=== PATIENT | female | born 1960 | race Caucasian/White ===

== ENCOUNTER 2023-12-11 15:30 | Oncology outpatient (recurring) (ONCR) | payer BC, SELFPAY ==
[2023-12-01 13:04] LABS: Hematocrit 28.7 % (36-47); Mean Corpuscular HGB Conc 29.6 g/dL (30-55); Mean Corpuscular Hemoglobin 23.9 pg (27-33); Mean Corpuscular Volume 80.6 fl (85-98); Mean Platelet Volume 10.2 fL (7.4-10.4); Platelet Count 109 10^3/cmm (157-399); Red Blood Count 3.56 10^6/uL (3.85-5.65); Red Cell Distribution Width 17.2 % (12.1-15.1); White Blood Count 4.52 10^3/uL (3.29-11.43)
[2023-12-01 13:28] LABS: Slide Review Slide Review Perform; Total Cells Counted 100 (0-100)
[2023-12-01 13:29] LABS: Absolute Neutrophil 1.2 10^3/cmm (1.4-6.5); Absolute Segmented Neutrophil 1.2 10/cmm (1.6-7.1); Anisocytosis 1+; Eosinophils 0 %; Lymphocytes 50 %; Lymphocytes Absolute 3.3 10^3/cmm (1.2-3.4); Platelet Estimate Decreased (Normal); Segmented Neutrophils 27 %
[2023-12-01 13:40] LABS: Alanine Aminotransferase < 5 U/L (0-33); Albumin Level 3.9 g/dL (3.5-5.2); Alkaline Phosphatase 124 U/L (35-105); Anion Gap 13.7 (5-19); Aspartate Amino Transferase 9 U/L (0-32); Blood Urea Nitrogen 13 mg/dL (8-23); Calcium 8.5 mg/dL (8.5-10.5); Carbon Dioxide 28 mmol/L (22-29); Chloride 106 mmol/L (98-107); Creatinine Clr Calc Pharmacy 72.5367; Ferritin 93 ng/mL (15-150); Globulin 2.2 g/dL (1.3-4.6); Glomerular Filtration Rate 63.4 mL/min (90-130); Glucose 110 mg/dL (65-115); Iron 16 ug/dL (37-145); Lactate Dehydrogenase 154 U/L (135-214); Osmolality Calculated 299 mOsm/kg (285-295); Percent Saturation 9.8 % (20-50); Potassium 3.7 mmol/L (3.5-5.1); Sodium 144 mmol/L (136-145); Total Bilirubin 0.4 mg/dL (0.15-1.2); Total Iron Binding Capacity 163 mcg/dl; Total Protein 6.1 g/dL (6.6-8.7); Unsaturated Iron Binding 147 ug/dL (112-347)
[2023-12-01 13:47] LABS: Folate Level 3.6 ng/mL (4.8-37.3)
[2023-12-01 14:28] LABS: Vitamin B12 > 2000 pg/mL (232-1245)
[2023-12-02 09:45] LABS: PROTEIN, TOTAL 5.9 g/dL (6.1-8.1)
[2023-12-02 16:09] LABS: ALBUMIN 3.8 g/dL (3.8-4.8); ALPHA 1 GLOBULIN 0.3 g/dL (0.2-0.3); ALPHA 2 GLOBULIN 0.6 g/dL (0.5-0.9); BETA 1 GLOBULIN 0.4 g/dL (0.4-0.6); BETA 2 GLOBULIN 0.2 g/dL (0.2-0.5); GAMMA GLOBULIN 0.6 g/dL (0.8-1.7)
--- NOTE | 2023-12-11 14:59 | MM_ITS ---
WS: [id number] BILATERAL 3D TOMOSYNTHESIS DIGITAL SCREENING MAMMOGRAPHY WITH CAD CLINICAL INFORMATION: POST MENIS HISTORY: Screening mammogram. No current complaints. COMPARISON: 2017 TECHNIQUE: Bilateral CC and MLO views. FINDINGS: Scattered fibroglandular densities bilaterally. No suspicious focal mass, asymmetry, calcifications, or architectural distortion. No evidence of malignancy. A few tiny incidental punctate calcifications . MM/[place] [id number] IMPRESSION: BI-RADS: 2-Benign FOLLOW UP: 1 Year Follow-up Recommend return to annual screening mammography.
== END 2023-12-25 23:59 | disposition home or self-care (01) ==
LOC: ONCMED 12-23 18:50
PROVIDERS: Internal Medicine Hematology & Oncology; Family Provider Family Medicine; PCP Family Medicine; Visit Provider Internal Medicine Medical Oncology
DX: Z12.31 Encounter for screening mammogram for malignant neoplasm of breast (principal); Z53.9 Procedure and treatment not carried out, unspecified reason
CPT/HCPCS: 36415; 77063; 77067; 80053; 82607; 82728; 82746; 83540; 83550; 83615; 83883; 84155; 84165; 85007; 85025

== ENCOUNTER 2023-12-29 11:51 | Outpatient (CLI) | payer BC, SELFPAY ==
--- NOTE | 2023-12-29 12:00 | PETR_ITS ---
PROCEDURE INFORMATION: Exam: PET/CT Skull Base to Mid-thigh Exam date and time: 12/29/2023 12:13 PM Age: 63 years old Clinical indication: Symptoms: Splenomegley with odd lymph nodes LABS AND CLINICAL REPORTS: Glucose: 97 mg/dl Treatment strategy for malignancy (PET staging): Initial Staging (PI) TECHNIQUE: Imaging protocol: Following at least four-hour fasting and following the injection of radiopharmaceutical, low dose CT images were obtained. Then, PET images were obtained. Attenuation corrected images were constructed using the CT scan. Fused images of PET and CT were reviewed. The standardized uptake values (SUV) reported below are maximum values within a region of interest, expressed in gm/ml. Exam includes orbital meatal line to mid-thigh. Radiopharmaceutical: 13.2 mCi F-18 FDG (Fluorodeoxyglucose), IV. Time of imaging post radiopharmaceutical administration: 1 hour Injection site: Left antecubital COMPARISON: No relevant prior studies available. FINDINGS: Brain: Visualized brain has normal physiologic uptake. Paranasal sinuses: There is mild uptake within moderate mucosal thickening of the sphenoid sinus, SUV max 2.6, likely related to mild inflammatory changes associated with chronic sinusitis. Pharynx: No abnormal uptake. Larynx: No abnormal uptake. Lungs, pleura and trachea: No abnormal uptake. Minimal bullous changes at the right lung apex are present. Heart: Normal physiologic uptake. Mediastinal space: No abnormal uptake. Liver: No abnormal uptake. Small calcified granulomas in the liver are present. Gallbladder and bile ducts: No abnormal uptake. Cholecystectomy clips are present. Pancreas: No abnormal uptake. Spleen: There is marked splenomegaly, measuring 26 cm superior to inferior. Abnormal uptake within the spleen is diffuse SUV max 6.0, SUV mean 3.6. Clustered non radiotracer avid soft tissue density nodules medial to the spleen are noted measuring up to 1.3 cm on series 3, image 132. Adrenal glands: No abnormal uptake. Kidneys and ureters: Normal physiologic uptake. Stomach and bowel: No abnormal uptake. Vasculature: No abnormal uptake. Mild splenic venous varicosities are noted. There are diffuse atherosclerotic calcifications. Lymph nodes: No abnormal uptake. No lymphadenopathy in the head, neck, chest, abdomen, pelvis, and extremities. Small benign-appearing calcified mediastinal and left hilar lymph nodes are present. Skeleton: Elevated uptake in the medial mid to superior scapular body is noted where there is a region of linear lucency with adjacent cortical indistinctness on CT series 3 images 53 through 56, SUV max 3.3. Degenerative changes in the spine are present. Soft tissues: No abnormal uptake in the visualized head, neck, chest, abdomen, pelvis, and extremities. METRICS: Mediastinal blood pool: SUV max 1.5 Liver uptake: SUV max 2.7 [id number] IMPRESSION: 1. Marked splenomegaly with diffusely abnormally elevated uptake is noted. This appearance can be associated with malignancy such as lymphoma. Infectious or inflammatory etiologies are an additional consideration. 2. No evidence of lymphadenopathy or abnormal uptake within lymph nodes. 3. A focus of abnormal uptake within a region of abnormal lucency in mid to superomedial scapular body is present. A malignant etiology cannot be excluded. Uptake related to recent trauma could also account for this appearance. Correlation with clinical history is recommended. MRI of the scapula with and without contrast may be useful for more definitive assessment. 4. Additional nonurgent findings as detailed above.
== END 2023-12-29 11:52 | disposition home or self-care (01) ==
LOC: RAD 11:51
PROVIDERS: Family Provider Family Medicine; PCP Family Medicine; Visit Provider Internal Medicine Hematology & Oncology
DX: R16.1 Splenomegaly, not elsewhere classified (principal)
CPT/HCPCS: 78815; A9552

== ENCOUNTER 2024-01-07 09:52 | Oncology outpatient (recurring) (ONCR) | payer BC, SELFPAY ==
[2024-01-07 10:53] LABS: Erythrocyte Sedimentation Rate 11 mm/hr (0-15)
[2024-01-07 10:55] LABS: Alanine Aminotransferase 7 U/L (0-33); Albumin Level 4.2 g/dL (3.5-5.2); Alkaline Phosphatase 138 U/L (35-105); Anion Gap 15.9 (5-19); Aspartate Amino Transferase 13 U/L (0-32); Blood Urea Nitrogen 13 mg/dL (8-23); C Reactive Protein 12.1 mg/L (0.0-4.9); Calcium 9.5 mg/dL (8.5-10.5); Carbon Dioxide 26 mmol/L (22-29); Chloride 102 mmol/L (98-107); Globulin 2.4 g/dL (1.3-4.6); Glomerular Filtration Rate 63.4 mL/min (90-130); Glucose 100 mg/dL (65-115); Hematocrit 33.3 % (36-47); Lactate Dehydrogenase 172 U/L (135-214); Mean Corpuscular HGB Conc 29.7 g/dL (30-55); Mean Corpuscular Volume 80.6 fl (85-98); Mean Platelet Volume 10.3 fL (7.4-10.4); Osmolality Calculated 290 mOsm/kg (285-295); Platelet Count 100 10^3/cmm (157-399); Potassium 3.9 mmol/L (3.5-5.1); Red Blood Count 4.13 10^6/uL (3.85-5.65); Red Cell Distribution Width 17.2 % (12.1-15.1); Sodium 140 mmol/L (136-145); Total Bilirubin 0.5 mg/dL (0.15-1.2); Total Protein 6.6 g/dL (6.6-8.7); White Blood Count 4.26 10^3/uL (3.29-11.43)
[2024-01-07 11:29] LABS: Slide Review Slide Review Perform
[2024-01-07 11:30] LABS: Absolute Eosinophils 0.1 10^3/cmm (0.0-0.7); Absolute Neutrophil 1.4 10^3/cmm (1.4-6.5); Absolute Segmented Neutrophil 1.4 10/cmm (1.6-7.1); Eosinophils 3 %; LAB Peripheral Smear Sent for Review; Lymphocytes 38 %; Lymphocytes Absolute 2.7 10^3/cmm (1.2-3.4); Platelet Estimate Decreased (Normal); Segmented Neutrophils 32 %; Total Cells Counted 100 (0-100)
[2024-01-08 05:09] LABS: Folate Level 2.4 ng/mL (4.8-37.3)
[2024-01-08 13:52] LABS: Leukemia Profile (BBPL) See Report
== END 2024-01-24 23:59 | disposition home or self-care (01) ==
LOC: ONCMED 09:53
PROVIDERS: Family Provider Family Medicine; PCP Family Medicine; Visit Provider Internal Medicine Medical Oncology
DX: Z12.31 Encounter for screening mammogram for malignant neoplasm of breast (principal); Z53.9 Procedure and treatment not carried out, unspecified reason; D64.9 Anemia, unspecified; R16.1 Splenomegaly, not elsewhere classified
CPT/HCPCS: 36415; 80053; 82746; 83615; 85007; 85025; 85651; 86140; 88184; 88185

== ENCOUNTER 2024-02-15 13:06 | Oncology outpatient (recurring) (ONCR) | payer BC, SELFPAY | END 2024-02-24 23:59 | disposition home or self-care (01) | PROVIDERS: Family Provider Family Medicine; PCP Family Medicine; Visit Provider Internal Medicine Medical Oncology | DX: Z53.9 Procedure and treatment not carried out, unspecified reason (principal) ==

== ENCOUNTER 2024-03-24 07:20 | Oncology outpatient (recurring) (ONCR) | payer BC, SELFPAY ==
[2024-03-24] VITALS (15 sets, daily range): BP systolic 100–121; BP diastolic 50–72; PULSE 71–103; RESP 15–20; TEMP 36–37.7; O2SAT 92–99
[2024-03-24 07:48] LABS: Basophils % 0.3 %; Eosinophils % 0.3 %; Nucleated Red Blood Cells % 0 %
[2024-03-24 07:53] LABS: Hematocrit 31.1 % (36-47); Lymphocytes # 4.5 10^3/uL (0.8-4.8); Lymphocytes % 68.3 %; Mean Corpuscular HGB Conc 29.9 g/dL (30-55); Mean Corpuscular Hemoglobin 24.3 pg (27-33); Mean Corpuscular Volume 81.2 fl (85-98); Mean Platelet Volume 10.3 fL (7.4-10.4); Monocytes # 0.5 10^3/uL (0.2-0.9); Monocytes % 6.8 %; Neutrophils # 1.59 10^3/uL (1.8-7.7); Neutrophils % 24.1 %; Platelet Count 88 10^3/cmm (157-399); Red Blood Count 3.83 10^6/uL (3.85-5.65); Red Cell Distribution Width 16.9 % (12.1-15.1); White Blood Count 6.59 10^3/uL (3.29-11.43)
[2024-03-24 08:06] LABS: Alanine Aminotransferase 6 U/L (0-33); Albumin Level 4.1 g/dL (3.5-5.2); Alkaline Phosphatase 123 U/L (35-105); Anion Gap 19.3 (5-19); Aspartate Amino Transferase 12 U/L (0-32); Blood Urea Nitrogen 13 mg/dL (8-23); Calcium 8.9 mg/dL (8.5-10.5); Carbon Dioxide 23 mmol/L (22-29); Chloride 102 mmol/L (98-107); Globulin 2.1 g/dL (1.3-4.6); Glucose 147 mg/dL (65-115); Osmolality Calculated 295 mOsm/kg (285-295); Potassium 3.3 mmol/L (3.5-5.1); Sodium 141 mmol/L (136-145); Total Bilirubin 0.7 mg/dL (0.15-1.2); Total Protein 6.2 g/dL (6.6-8.7)
[2024-03-24 08:07] LABS: Slide Review Slide Review Perform
[2024-03-24] MEDS: acetaminophen 325 mg Tablet 650 MG PO ×2 (09:46→13:58)
[2024-03-24] MEDS: diphenhydrAMINE 50 mg/mL SDV 1mL 25 MG IVP (09:46)
[2024-03-24] MEDS: sodium chloride 0.9% 250 ML 75 ML IV (09:46)
[2024-03-24] MEDS: allopurinol 300 mg Tablet PO (10:04)
[2024-03-24] MEDS: rituximab-abbs 500 MG, rituximab-abbs 240 MG in sodium chloride 0.9% 500 ML 54.1 MG IV (10:20)
--- NOTE | 2024-03-24 10:33 | PC.NURSE ---
patient reports some changes in breathing, still feeling as if she can get a full breath but different. Slight dry cough noted and was no present prior to infusion. Lung sounds are still clear. Vitals noted. Infusion has been paused and provider informed and requested at chairside.
[2024-03-24 10:36] LABS: Hepatitis A Antibody IgM Non-Reactive (Nonreactive); Hepatitis B Core AB, Total Non-Reactive (Nonreactive); Hepatitis B Surface AB < 3.5 (11.5-1000); Hepatitis B Surface Antigen Non-Reactive (Nonreactive); Hepatitis C Virus Antibody Non-Reactive (Nonreactive)
[2024-03-24] MEDS: meperidine 50 mg/mL INJ 12.5 MG IVP ×2 (11:33→12:39)
[2024-03-24] MEDS: methylPREDNISolone sod succ 40 mg/mL INJ IVP (12:29)
[2024-03-24] MEDS: sodium chloride 0.9% 1,000 ML 250 ML IV (12:45)
[2024-03-24] MEDS: ondansetron 2 mg/ML SDV 2 mL 8 MG IVP (12:57)
--- NOTE | 2024-03-25 08:40 | PC.NURSE ---
Called pt for follow up. Pt states she is feeling wonderful. Her pain in the abdomen is gone. Pt is currently at work. No fever. JW
== END 2024-03-26 23:59 | disposition home or self-care (01) ==
PROVIDERS: Nurse Practitioner Family; Family Provider Family Medicine; PCP Family Medicine; Visit Provider Internal Medicine Medical Oncology
DX: Z53.9 Procedure and treatment not carried out, unspecified reason (principal); D50.9 Iron deficiency anemia, unspecified; C83.07 Small cell B-cell lymphoma, spleen; Z79.899 Other long term (current) drug therapy
CPT/HCPCS: 80053; 85025; 86705; 86706; 86709; 86803; 87340; 96361; 96375; 96376; 96413; J1200; J2175; J2405; J2919; J7030; J7040; J7050; Q5115

== ENCOUNTER 2024-04-19 14:30 | Outpatient (CLI) | payer BC, SELFPAY ==
--- NOTE | 2024-04-19 14:30 | CT_ITS ---
WS: [id number] CT ABDOMEN AND PELVIS WITH CONTRAST HISTORY: followup splenic lymphoma post treatment TECHNIQUE: Imaging performed of the abdomen and pelvis with IV contrast. Single phase imaging of the abdomen. Coronal and sagittal reformats are submitted. All CT scans at [facility] use at [address] one of these dose optimization techniques: automated exposure control; mA and/or kV adjustment per patient size (includes targeted exams where dose is matched to clinical indication); or iterative re construction. IV CONTRAST: Omnipaque 350; 100 mL IV. Oral contrast: Yes. DLP: 796.40 mGy.cm COMPARISON: PET/CT 12/29/2023 Lower thorax: Lung bases are clear. Heart is normal size. Small hiatal hernia. Oral contrast still pr esent within the distal esophagus may be from reflux disease. Liver/biliary system: Liver is mildly enlarged. No mass. No bile duct dilatation. Gallbladder: Status post cholecystectomy. Pancreas: Normal size pancreas and pancreatic duct. No adjacent inflammation. Spleen: Spleen is enlarged extending over a length of 18.1 cm. This compares to 26 cm on the PET/CT. No low-attenuation masses within the spleen. Adrenal glands: Normal. Right kidney: Normal. Left kidney: Normal. Aorta: Mild atherosclerosis with no aneurysm. Lymphadenopathy: There are a few small well-circumscribed masses adjacent to the splenic hilum which are probably splenule's. No central mesenteric or retroperitoneal adenopathy. Free fluid: None. GI tract: Stomach is markedly distended with fluid fluid and air. No outlet obstruction is identified . No small bowel obstruction. Moderate diffuse fecal retention. No colitis or obstruction. Abdominal wall: Fat containing umbilical hernia. Pelvis: No free fluid or adenopathy. Atrophic uterus. There is a tiny amount of air in the urinary bl adder of uncertain significance. No fistula is identified. No history of recent catheterization. Vaughn elate for urinary tract infection. Bones: 0 degenerative changes in the lumbar spine with mild rotary scoliosis. CT/CT abdomen pelvis w con* [id number] IMPRESSION: 1. Continued splenomegaly. Spleen is significantly decreased in size since 12/28. Spleen has decreased from 26 cm in length to 18.1 cm. No splenic lesions . 2. No ascites or adenopathy. 3. Prior cholecystectomy.
[2024-04-19] MEDS: iohexol 350 mg/mL 500 mL Btl (per mL) IV (15:32)
[2024-04-19] MEDS: iohexol 350 mg/mL 500 mL Btl (per mL) PO (15:32)
== END 2024-04-19 14:31 | disposition home or self-care (01) ==
PROVIDERS: Family Provider Family Medicine; PCP Family Medicine; Visit Provider Nurse Practitioner
DX: C83.07 Small cell B-cell lymphoma, spleen (principal); R16.1 Splenomegaly, not elsewhere classified; K59.00 Constipation, unspecified; K42.9 Umbilical hernia without obstruction or gangrene; Z90.49 Acquired absence of other specified parts of digestive tract
CPT/HCPCS: 74177

== ENCOUNTER 2024-04-21 10:15 | Oncology outpatient (recurring) (ONCR) | payer BC, SELFPAY ==
[2024-03-31] VITALS (11 sets, daily range): BP systolic 108–137; BP diastolic 51–79; PULSE 72–98; RESP 16; TEMP 35.7–37.6; O2SAT 95–99
[2024-03-31 09:15] LABS: Basophils % 0.3 %; Eosinophils % 0.3 %; Hematocrit 32.3 % (36-47); Lymphocytes # 4.3 10^3/uL (0.8-4.8); Lymphocytes % 66.2 %; Mean Corpuscular Hemoglobin 24.6 pg (27-33); Mean Corpuscular Volume 81.8 fl (85-98); Mean Platelet Volume 10.3 fL (7.4-10.4); Monocytes # 0.3 10^3/uL (0.2-0.9); Monocytes % 4.6 %; Neutrophils # 1.84 10^3/uL (1.8-7.7); Neutrophils % 28.4 %; Nucleated Red Blood Cells % 0 %; Platelet Count 99 10^3/cmm (157-399); Red Blood Count 3.95 10^6/uL (3.85-5.65); Red Cell Distribution Width 17.3 % (12.1-15.1); White Blood Count 6.47 10^3/uL (3.29-11.43)
[2024-03-31 09:32] LABS: Alanine Aminotransferase 9 U/L (0-33); Albumin Level 4.5 g/dL (3.5-5.2); Alkaline Phosphatase 136 U/L (35-105); Anion Gap 14.8 (5-19); Aspartate Amino Transferase 11 U/L (0-32); Blood Urea Nitrogen 14 mg/dL (8-23); Calcium 9.6 mg/dL (8.5-10.5); Carbon Dioxide 28 mmol/L (22-29); Chloride 104 mmol/L (98-107); Creatinine Clr Calc Pharmacy 69.3229; Globulin 2.2 g/dL (1.3-4.6); Glomerular Filtration Rate 63.2 mL/min (90-130); Glucose 94 mg/dL (65-115); Osmolality Calculated 296 mOsm/kg (285-295); Potassium 3.8 mmol/L (3.5-5.1); Sodium 143 mmol/L (136-145); Total Bilirubin 0.5 mg/dL (0.15-1.2); Total Protein 6.7 g/dL (6.6-8.7)
[2024-03-31 09:45] LABS: Slide Review Slide Review Perform
[2024-03-31] MEDS: acetaminophen 325 mg Tablet 650 MG PO (11:06)
[2024-03-31] MEDS: sodium chloride 0.9% 250 ML 75 ML IV (11:07)
[2024-03-31] MEDS: methylPREDNISolone sod succ 125 mg/2 mL INJ 60 MG IVP (11:11)
[2024-03-31] MEDS: diphenhydrAMINE 50 mg/mL SDV 1mL 25 MG IVP ×2 (11:19→14:30)
[2024-03-31] MEDS: rituximab-abbs 500 MG, rituximab-abbs 240 MG in sodium chloride 0.9% 500 ML 19.4 MG IV (11:47)
[2024-03-31] MEDS: meperidine 50 mg/mL INJ 25 MG IVP (14:10)
[2024-03-31] MEDS: sodium chloride 0.9% 1,000 ML 75 ML IV (14:30)
[2024-04-07] VITALS (16 sets, daily range): BP systolic 100–137; BP diastolic 55–75; PULSE 64–94; RESP 16; TEMP 36.2–37.2; O2SAT 94–99
[2024-04-07 07:48] LABS: Basophils % 0.7 %; Eosinophils % 0.6 %; Hematocrit 32.6 % (36-47); Lymphocytes # 2.9 10^3/uL (0.8-4.8); Lymphocytes % 54.3 %; Mean Corpuscular HGB Conc 29.8 g/dL (30-55); Mean Corpuscular Hemoglobin 24.7 pg (27-33); Mean Platelet Volume 10.1 fL (7.4-10.4); Monocytes # 0.3 10^3/uL (0.2-0.9); Monocytes % 5.4 %; Neutrophils # 2.08 10^3/uL (1.8-7.7); Neutrophils % 38.6 %; Nucleated Red Blood Cells % 0 %; Platelet Count 84 10^3/cmm (157-399); Red Blood Count 3.93 10^6/uL (3.85-5.65); Red Cell Distribution Width 17.4 % (12.1-15.1); White Blood Count 5.38 10^3/uL (3.29-11.43)
[2024-04-07 08:11] LABS: Alanine Aminotransferase 7 U/L (0-33); Albumin Level 4.1 g/dL (3.5-5.2); Alkaline Phosphatase 121 U/L (35-105); Anion Gap 13.9 (5-19); Aspartate Amino Transferase 9 U/L (0-32); Blood Urea Nitrogen 10 mg/dL (8-23); Calcium 9.1 mg/dL (8.5-10.5); Carbon Dioxide 28 mmol/L (22-29); Chloride 104 mmol/L (98-107); Creatinine Clr Calc Pharmacy 69.3229; Globulin 2.1 g/dL (1.3-4.6); Glomerular Filtration Rate 63.2 mL/min (90-130); Glucose 144 mg/dL (65-115); Osmolality Calculated 296 mOsm/kg (285-295); Potassium 3.9 mmol/L (3.5-5.1); Sodium 142 mmol/L (136-145); Total Bilirubin 0.7 mg/dL (0.15-1.2); Total Protein 6.2 g/dL (6.6-8.7)
[2024-04-07 08:46] LABS: Slide Review Slide Review Perform
[2024-04-07] MEDS: sodium chloride 0.9% 250 ML 75 ML IV (09:08)
[2024-04-07] MEDS: acetaminophen 325 mg Tablet 650 MG PO (09:11)
[2024-04-07] MEDS: methylPREDNISolone sod succ 125 mg/2 mL INJ 60 MG IVP (09:11)
[2024-04-07] MEDS: diphenhydrAMINE 50 mg/mL SDV 1mL 25 MG IVP ×2 (09:13→12:52)
[2024-04-07] MEDS: rituximab-abbs 500 MG, rituximab-abbs 240 MG in sodium chloride 0.9% 500 ML 40 MG IV (10:26)
[2024-04-07] MEDS: methylPREDNISolone sod succ 40 mg/mL INJ IVP (12:59)
[2024-04-07] MEDS: sodium chloride 0.9% 1,000 ML 250 ML IV (13:07)
--- NOTE | 2024-04-07 15:55 | PC.NURSE ---
Pt receiving infusion of Rituximab. At 1249, pt states her tongue and lips were tingling along with head and neck pain. Notified CHRISTOPH España., verbal order for 25mg benadryl and 40mg solu-medrol. Benadryl given at 1252, vitals stable. Solu-medrol given at 1259. Pt continues to maintain stable vitals. (all vitals charted in worklist). Pt lungs clear. 1307 pt states tingling gone from lips and tongue, slight headache continues and neck pain improving. Rituximab restarted at 1338, pt was able to finish infusion with no further reactions. Pt tolerated well.
[2024-04-14] VITALS (7 sets, daily range): BP systolic 95–117; BP diastolic 57–71; PULSE 69–77; RESP 16; TEMP 36.1–36.7; O2SAT 94–99
[2024-04-14 07:58] LABS: Basophils % 1.6 %; Eosinophils % 0.8 %; Lymphocytes # 0.8 10^3/uL (0.8-4.8); Lymphocytes % 29.6 %; Mean Corpuscular HGB Conc 29.7 g/dL (30-55); Mean Corpuscular Hemoglobin 24.4 pg (27-33); Mean Corpuscular Volume 82.2 fl (85-98); Monocytes # 0.1 10^3/uL (0.2-0.9); Monocytes % 4.7 %; Neutrophils # 1.62 10^3/uL (1.8-7.7); Neutrophils % 62.9 %; Nucleated Red Blood Cells % 0 %; Platelet Count 125 10^3/cmm (157-399); Red Blood Count 4.38 10^6/uL (3.85-5.65); Red Cell Distribution Width 17.6 % (12.1-15.1); White Blood Count 2.57 10^3/uL (3.29-11.43)
[2024-04-14 08:30] LABS: Alanine Aminotransferase 9 U/L (0-33); Albumin Level 4.4 g/dL (3.5-5.2); Alkaline Phosphatase 103 U/L (35-105); Anion Gap 15.2 (5-19); Aspartate Amino Transferase 10 U/L (0-32); Blood Urea Nitrogen 14 mg/dL (8-23); Calcium 9.2 mg/dL (8.5-10.5); Carbon Dioxide 28 mmol/L (22-29); Chloride 103 mmol/L (98-107); Creatinine Clr Calc Pharmacy 69.5063; Globulin 1.8 g/dL (1.3-4.6); Glomerular Filtration Rate 63.2 mL/min (90-130); Glucose 109 mg/dL (65-115); Osmolality Calculated 295 mOsm/kg (285-295); Potassium 4.2 mmol/L (3.5-5.1); Sodium 142 mmol/L (136-145); Total Bilirubin 0.6 mg/dL (0.15-1.2); Total Protein 6.2 g/dL (6.6-8.7)
[2024-04-14] MEDS: sodium chloride 0.9% 250 ML 75 ML IV (10:29)
[2024-04-14] MEDS: acetaminophen 325 mg Tablet 650 MG PO (10:29)
[2024-04-14] MEDS: famotidine 20 mg/2 mL INJ 40 MG IVP (10:32)
[2024-04-14] MEDS: methylPREDNISolone sod succ 125 mg/2 mL INJ IVP (10:36)
[2024-04-14] MEDS: diphenhydrAMINE 50 mg/mL SDV 1mL 25 MG IVP (10:39)
[2024-04-14] MEDS: rituximab-abbs 500 MG, rituximab-abbs 240 MG in sodium chloride 0.9% 500 ML 54.1 MG IV (11:16)
[2024-04-21 10:37] LABS: Basophils % 0.7 %; Eosinophils % 0.7 %; Hematocrit 37.6 % (36-47); Lymphocytes # 1.3 10^3/uL (0.8-4.8); Mean Corpuscular HGB Conc 31.1 g/dL (30-55); Mean Corpuscular Hemoglobin 25.2 pg (27-33); Mean Platelet Volume 9.8 fL (7.4-10.4); Monocytes # 0.2 10^3/uL (0.2-0.9); Monocytes % 5.3 %; Neutrophils # 2.76 10^3/uL (1.8-7.7); Neutrophils % 64.1 %; Nucleated Red Blood Cells % 0 %; Platelet Count 141 10^3/cmm (157-399); Red Blood Count 4.64 10^6/uL (3.85-5.65); Red Cell Distribution Width 18.5 % (12.1-15.1); White Blood Count 4.31 10^3/uL (3.29-11.43)
[2024-04-21 10:58] LABS: Alanine Aminotransferase 7 U/L (0-33); Albumin Level 4.3 g/dL (3.5-5.2); Alkaline Phosphatase 96 U/L (35-105); Aspartate Amino Transferase 10 U/L (0-32); Blood Urea Nitrogen 14 mg/dL (8-23); Carbon Dioxide 28 mmol/L (22-29); Chloride 101 mmol/L (98-107); Creatinine Clr Calc Pharmacy 69.1398; Globulin 1.8 g/dL (1.3-4.6); Glomerular Filtration Rate 63.2 mL/min (90-130); Glucose 96 mg/dL (65-115); Osmolality Calculated 288 mOsm/kg (285-295); Sodium 139 mmol/L (136-145); Total Bilirubin 0.7 mg/dL (0.15-1.2); Total Protein 6.1 g/dL (6.6-8.7)
== END 2024-04-25 23:59 | disposition home or self-care (01) ==
PROVIDERS: Nurse Practitioner; Nurse Practitioner Family; Family Provider Family Medicine; PCP Family Medicine; Visit Provider Internal Medicine Medical Oncology
DX: C83.07 Small cell B-cell lymphoma, spleen (principal); Z53.9 Procedure and treatment not carried out, unspecified reason
CPT/HCPCS: 36415; 80053; 85025; 96361; 96375; 96376; 96413; 96415; A4222; J1200; J2175; J2919; J3490; J7030; J7040; J7050; Q5115

== ENCOUNTER 2024-05-18 07:45 | Oncology outpatient (recurring) (ONCR) | payer BC, SELFPAY ==
[2024-04-27 08:44] LABS: Basophils % 0.6 %; Eosinophils % 0.6 %; Hematocrit 36.1 % (36-47); Lymphocytes % 31.7 %; Mean Corpuscular HGB Conc 31.6 g/dL (30-55); Mean Corpuscular Hemoglobin 25.9 pg (27-33); Mean Corpuscular Volume 81.9 fl (85-98); Mean Platelet Volume 10.8 fL (7.4-10.4); Monocytes # 0.2 10^3/uL (0.2-0.9); Monocytes % 4.7 %; Neutrophils % 62.1 %; Nucleated Red Blood Cells % 0 %; Platelet Count 104 10^3/cmm (157-399); Red Blood Count 4.41 10^6/uL (3.85-5.65); Red Cell Distribution Width 18.8 % (12.1-15.1); White Blood Count 3.22 10^3/uL (3.29-11.43)
[2024-04-27 09:18] LABS: Alanine Aminotransferase 10 U/L (0-33); Albumin Level 4.3 g/dL (3.5-5.2); Alkaline Phosphatase 87 U/L (35-105); Aspartate Amino Transferase 12 U/L (0-32); Blood Urea Nitrogen 10 mg/dL (8-23); Calcium 8.9 mg/dL (8.5-10.5); Carbon Dioxide 28 mmol/L (22-29); Chloride 105 mmol/L (98-107); Globulin 1.9 g/dL (1.3-4.6); Glomerular Filtration Rate 63.2 mL/min (90-130); Glucose 72 mg/dL (65-115); Osmolality Calculated 290 mOsm/kg (285-295); Sodium 141 mmol/L (136-145); Total Bilirubin 0.4 mg/dL (0.15-1.2); Total Protein 6.2 g/dL (6.6-8.7)
[2024-04-27 10:00] VITALS: BP 120/72; PULSE 74; RESP 18; TEMP 36.6; O2SAT 98
[2024-04-27] MEDS: sodium chloride 0.9% 250 ML 75 ML IV (10:37)
[2024-04-27] MEDS: famotidine 20 mg/2 mL INJ 40 MG IVP (10:50)
[2024-04-27] MEDS: methylPREDNISolone sod succ 125 mg/2 mL INJ IVP (10:52)
[2024-04-27] MEDS: acetaminophen 325 mg Tablet 650 MG PO (10:54)
[2024-04-27] MEDS: diphenhydrAMINE 50 mg/mL SDV 1mL 25 MG IVP (10:56)
[2024-04-27] MEDS: rituximab-abbs 500 MG, rituximab-abbs 240 MG in sodium chloride 0.9% 500 ML 94.6 MG IV (11:21)
[2024-04-27 11:59] VITALS: BP 121/74; PULSE 72; RESP 18; TEMP 36.4; O2SAT 99
[2024-04-27 12:20] VITALS: BP 112/65; PULSE 64; RESP 18; TEMP 35.8; O2SAT 99
[2024-04-27 14:10] VITALS: BP 123/71; PULSE 84; RESP 17; TEMP 36.1; O2SAT 99
[2024-05-04 09:58] LABS: Mean Corpuscular HGB Conc 31.6 g/dL (30-55); Nucleated Red Blood Cells % 0 %
[2024-05-04 10:07] LABS: Alanine Aminotransferase 12 U/L (0-33); Albumin Level 4.6 g/dL (3.5-5.2); Alkaline Phosphatase 89 U/L (35-105); Anion Gap 13.4 (5-19); Aspartate Amino Transferase 15 U/L (0-32); Blood Urea Nitrogen 21 mg/dL (8-23); Calcium 9.3 mg/dL (8.5-10.5); Carbon Dioxide 29 mmol/L (22-29); Chloride 98 mmol/L (98-107); Creatinine Clr Calc Pharmacy 56.9157; Globulin 2.2 g/dL (1.3-4.6); Glomerular Filtration Rate 50.2 mL/min (90-130); Glucose 94 mg/dL (65-115); Osmolality Calculated 285 mOsm/kg (285-295); Potassium 4.4 mmol/L (3.5-5.1); Sodium 136 mmol/L (136-145); Total Bilirubin 0.8 mg/dL (0.15-1.2); Total Protein 6.8 g/dL (6.6-8.7)
[2024-05-04] MEDS: sodium chloride 0.9% 250 ML 75 ML IV (10:28)
[2024-05-04] MEDS: acetaminophen 325 mg Tablet 650 MG PO (10:29)
[2024-05-04] MEDS: FUROsemide 10 mg/mL SDV 2mL 20 MG IVP (10:34)
[2024-05-04] MEDS: methylPREDNISolone sod succ 125 mg/2 mL INJ IVP (10:36)
[2024-05-04] MEDS: famotidine 20 mg/2 mL INJ 40 MG IVP (10:41)
[2024-05-04 10:42] LABS: Slide Review Slide Review Perform
[2024-05-04] MEDS: diphenhydrAMINE 50 mg/mL SDV 1mL 25 MG IVP (10:44)
[2024-05-04 11:15] VITALS: BP 107/63; PULSE 66; RESP 16; TEMP 36.3; O2SAT 99
[2024-05-04 11:45] VITALS: BP 114/76; PULSE 85; RESP 16; TEMP 36.2; O2SAT 99
[2024-05-04 12:15] VITALS: BP 110/66; PULSE 84; RESP 16; TEMP 36.4; O2SAT 98
[2024-05-04 12:45] VITALS: BP 110/66; PULSE 76; RESP 16; TEMP 36.9; O2SAT 99
[2024-05-04 14:05] VITALS: BP 93/54; PULSE 74; RESP 16; TEMP 36.4; O2SAT 97
[2024-05-04 16:34] LABS: White Blood Count 3.44 10^3/uL (3.29-11.43)
[2024-05-04 16:35] LABS: Hematocrit 39.3 % (36-47); Mean Corpuscular Hemoglobin 26.2 pg (27-33); Mean Corpuscular Volume 82.9 fl (85-98); Mean Platelet Volume 10.6 fL (7.4-10.4); Neutrophils % 56.9 %; Platelet Count 101 10^3/cmm (157-399); Red Blood Count 4.74 10^6/uL (3.85-5.65); Red Cell Distribution Width 19.6 % (12.1-15.1)
[2024-05-04 16:36] LABS: Basophils % 0.6 %; Eosinophils % 0.9 %; Lymphocytes # 1.2 10^3/uL (0.8-4.8); Lymphocytes % 34.6 %; Monocytes # 0.2 10^3/uL (0.2-0.9); Monocytes % 6.7 %; Neutrophils # 1.96 10^3/uL (1.8-7.7)
[2024-05-11 08:49] LABS: Basophils % 0.6 %; Eosinophils % 0.6 %; Hematocrit 36.1 % (36-47); Lymphocytes # 1.1 10^3/uL (0.8-4.8); Lymphocytes % 33.1 %; Mean Corpuscular HGB Conc 32.1 g/dL (30-55); Mean Corpuscular Hemoglobin 26.3 pg (27-33); Mean Corpuscular Volume 81.9 fl (85-98); Mean Platelet Volume 10.7 fL (7.4-10.4); Monocytes # 0.2 10^3/uL (0.2-0.9); Neutrophils # 1.99 10^3/uL (1.8-7.7); Neutrophils % 59.4 %; Nucleated Red Blood Cells % 0 %; Platelet Count 122 10^3/cmm (157-399); Red Blood Count 4.41 10^6/uL (3.85-5.65); Red Cell Distribution Width 19.2 % (12.1-15.1); White Blood Count 3.35 10^3/uL (3.29-11.43)
[2024-05-11 09:11] LABS: Alanine Aminotransferase 13 U/L (0-33); Albumin Level 4.5 g/dL (3.5-5.2); Alkaline Phosphatase 96 U/L (35-105); Anion Gap 14.8 (5-19); Aspartate Amino Transferase 17 U/L (0-32); Blood Urea Nitrogen 11 mg/dL (8-23); Carbon Dioxide 27 mmol/L (22-29); Chloride 104 mmol/L (98-107); Creatinine Clr Calc Pharmacy 69.6897; Globulin 1.7 g/dL (1.3-4.6); Glomerular Filtration Rate 63.2 mL/min (90-130); Glucose 100 mg/dL (65-115); Lactate Dehydrogenase 172 U/L (135-214); Osmolality Calculated 293 mOsm/kg (285-295); Potassium 3.8 mmol/L (3.5-5.1); Sodium 142 mmol/L (136-145); Total Bilirubin 0.7 mg/dL (0.15-1.2); Total Protein 6.2 g/dL (6.6-8.7)
[2024-05-11] MEDS: sodium chloride 0.9% 250 ML 75 ML IV (10:31)
[2024-05-11] MEDS: acetaminophen 325 mg Tablet 650 MG PO (10:32)
[2024-05-11] MEDS: diphenhydrAMINE 50 mg/mL SDV 1mL 25 MG IVP (10:34)
[2024-05-11] MEDS: famotidine 20 mg/2 mL INJ 40 MG IVP (10:36)
[2024-05-11] MEDS: FUROsemide 10 mg/mL SDV 2mL 20 MG IVP (10:38)
[2024-05-11] MEDS: methylPREDNISolone sod succ 125 mg/2 mL INJ IVP (10:40)
[2024-05-11] MEDS: flu vacc pf 24-25 (6 mos+) SYRINGE 45 MCG IM (10:41)
[2024-05-11 10:55] VITALS: BP 118/61; PULSE 61; RESP 16; TEMP 36.4; O2SAT 99
[2024-05-11 11:15] VITALS: BP 106/63; PULSE 84; RESP 16; TEMP 36.7; O2SAT 97
[2024-05-11] MEDS: rituximab-abbs 500 MG, rituximab-abbs 240 MG in sodium chloride 0.9% 500 ML 87.8 MG IV (11:15)
[2024-05-11 11:45] VITALS: BP 114/59; PULSE 69; RESP 16; TEMP 36.4; O2SAT 98
[2024-05-11 12:15] VITALS: BP 113/65; PULSE 85; RESP 16; TEMP 36.2; O2SAT 96
[2024-05-11 12:45] VITALS: BP 102/62; PULSE 74; RESP 16; TEMP 36.2; O2SAT 97
[2024-05-11 13:55] VITALS: BP 106/62; PULSE 68; RESP 16; TEMP 36.2; O2SAT 98
[2024-05-18 08:07] LABS: Basophils % 0.7 %; Eosinophils % 0.7 %; Hematocrit 36.4 % (36-47); Lymphocytes # 0.9 10^3/uL (0.8-4.8); Lymphocytes % 33.3 %; Mean Corpuscular HGB Conc 32.1 g/dL (30-55); Mean Corpuscular Hemoglobin 26.7 pg (27-33); Mean Corpuscular Volume 83.1 fl (85-98); Mean Platelet Volume 10.4 fL (7.4-10.4); Monocytes # 0.1 10^3/uL (0.2-0.9); Monocytes % 5.1 %; Neutrophils # 1.63 10^3/uL (1.8-7.7); Neutrophils % 59.8 %; Nucleated Red Blood Cells % 0 %; Platelet Count 125 10^3/cmm (157-399); Red Blood Count 4.38 10^6/uL (3.85-5.65); Red Cell Distribution Width 19.9 % (12.1-15.1); White Blood Count 2.73 10^3/uL (3.29-11.43)
[2024-05-18 08:32] LABS: Alanine Aminotransferase 83 U/L (0-33); Albumin Level 4.4 g/dL (3.5-5.2); Alkaline Phosphatase 140 U/L (35-105); Anion Gap 12.6 (5-19); Aspartate Amino Transferase 19 U/L (0-32); Blood Urea Nitrogen 12 mg/dL (8-23); Calcium 9.1 mg/dL (8.5-10.5); Carbon Dioxide 29 mmol/L (22-29); Chloride 104 mmol/L (98-107); Creatinine Clr Calc Pharmacy 69.8727; Glomerular Filtration Rate 63.2 mL/min (90-130); Glucose 112 mg/dL (65-115); Osmolality Calculated 295 mOsm/kg (285-295); Potassium 3.6 mmol/L (3.5-5.1); Sodium 142 mmol/L (136-145); Total Bilirubin 0.6 mg/dL (0.15-1.2); Total Protein 6.4 g/dL (6.6-8.7)
--- NOTE | 2024-05-18 09:35 | XR_ITS ---
WS: [id number] Exam: XR abdomen 3V [id number] Date/Time of Exam: 05/18/2024 9:55 AM Reason For Exam: marginal zone lymphoma spleen No bowel obstruction or free air. Mild splenomegaly. Moderate amount of retained stool in the colon. Signs of prior cholecystectomy. Fluid and moderate amount of gas in the stomach. Degenerative change and levoscoliosis of the lumbar spine. XR/XR abdomen 3V [id number] IMPRESSION: 1. No acute abdominal process. 2. Constipation. 3. Mild prominence of the spleen.
[2024-05-18] MEDS: sodium chloride 0.9% 250 ML 75 ML IV (11:02)
[2024-05-18] MEDS: acetaminophen 325 mg Tablet 650 MG PO (11:03)
[2024-05-18] MEDS: diphenhydrAMINE 50 mg/mL SDV 1mL 25 MG IVP (11:04)
[2024-05-18] MEDS: famotidine 20 mg/2 mL INJ 40 MG IVP (11:08)
[2024-05-18] MEDS: FUROsemide 10 mg/mL SDV 2mL 20 MG IVP (11:11)
[2024-05-18] MEDS: methylPREDNISolone sod succ 125 mg/2 mL INJ IVP (11:16)
[2024-05-18 11:45] VITALS: BP 112/71; PULSE 78; RESP 16; TEMP 36.4; O2SAT 98
[2024-05-18 12:15] VITALS: BP 125/69; PULSE 55; RESP 16; TEMP 36.6; O2SAT 100
[2024-05-18 12:45] VITALS: BP 100/65; PULSE 73; RESP 16; TEMP 36.1; O2SAT 98
[2024-05-18 13:15] VITALS: BP 102/61; PULSE 75; RESP 16; TEMP 36.6; O2SAT 96
[2024-05-18 14:20] VITALS: BP 105/65; PULSE 77; RESP 16; TEMP 36.3; O2SAT 96
== END 2024-05-26 23:59 | disposition home or self-care (01) ==
PROVIDERS: Nurse Practitioner; Nurse Practitioner Family; Family Provider Family Medicine; PCP Family Medicine; Visit Provider Internal Medicine Hematology & Oncology
DX: Z53.9 Procedure and treatment not carried out, unspecified reason (principal); Z51.12 Encounter for antineoplastic immunotherapy; C83.07 Small cell B-cell lymphoma, spleen; Z79.899 Other long term (current) drug therapy
CPT/HCPCS: 74021; 80053; 83615; 85025; 90471; 90686; 96375; 96413; 96415; J1200; J1940; J2919; J3490; J7040; J7050; Q5115

== ENCOUNTER 2024-06-15 07:46 | Oncology outpatient (recurring) (ONCR) | payer BC, SELFPAY ==
[2024-06-15 08:04] LABS: Basophils % 0.8 %; Eosinophils % 1.2 %; Hematocrit 36.9 % (36-47); Lymphocytes # 0.8 10^3/uL (0.8-4.8); Lymphocytes % 30.2 %; Mean Corpuscular HGB Conc 32.2 g/dL (30-55); Mean Corpuscular Hemoglobin 28.5 pg (27-33); Mean Corpuscular Volume 88.3 fl (85-98); Mean Platelet Volume 9.8 fL (7.4-10.4); Monocytes # 0.1 10^3/uL (0.2-0.9); Monocytes % 5.2 %; Neutrophils # 1.57 10^3/uL (1.8-7.7); Neutrophils % 62.2 %; Nucleated Red Blood Cells % 0 %; Platelet Count 122 10^3/cmm (157-399); Red Blood Count 4.18 10^6/uL (3.85-5.65); Red Cell Distribution Width 18.2 % (12.1-15.1); White Blood Count 2.52 10^3/uL (3.29-11.43)
[2024-06-15 08:20] LABS: Alanine Aminotransferase 11 U/L (0-33); Albumin Level 4.2 g/dL (3.5-5.2); Alkaline Phosphatase 103 U/L (35-105); Anion Gap 13.3 (5-19); Aspartate Amino Transferase 18 U/L (0-32); Blood Urea Nitrogen 12 mg/dL (8-23); Calcium 8.5 mg/dL (8.5-10.5); Carbon Dioxide 27 mmol/L (22-29); Chloride 106 mmol/L (98-107); Creatinine Clr Calc Pharmacy 71.5223; Globulin 1.7 g/dL (1.3-4.6); Glomerular Filtration Rate 63.2 mL/min (90-130); Glucose 126 mg/dL (65-115); Osmolality Calculated 295 mOsm/kg (285-295); Potassium 4.3 mmol/L (3.5-5.1); Sodium 142 mmol/L (136-145); Total Bilirubin 0.6 mg/dL (0.15-1.2); Total Protein 5.9 g/dL (6.6-8.7)
== END 2024-06-25 23:59 | disposition home or self-care (01) ==
PROVIDERS: Family Provider Family Medicine; PCP Family Medicine; Visit Provider Internal Medicine
DX: C83.07 Small cell B-cell lymphoma, spleen
CPT/HCPCS: 36415; 80053; 85025

== ENCOUNTER 2024-07-21 09:00 | Oncology outpatient (recurring) (ONCR) | payer BC, SELFPAY ==
--- NOTE | 2024-07-08 09:00 | PETR_ITS ---
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 Then, PET images were obtained. Attenuation corrected images were constructed using the CT scan. Fused images of PET and CT were reviewed. The standardized uptake values (SUV) reported below are maximum values within a region of interest, expressed in gm/ml. Exam includes orbital meatal line to mid-thigh. SUV normalization method: BodyWeight Radiopharmaceutical: 9.81 mCi F-18 FDG (Fluorodeoxyglucose), IV. Time of imaging post radiopharmaceutical administration: 60 minutes Injection site: left ac COMPARISON: 1. PT PET skull to thigh INIT [id number] 12/29/2023 12:[address] abdomen pelvis w con* [id number] 04/19/2024 3:12 PM FINDINGS: Brain: Visualized brain has normal physiologic uptake. Pharynx: No abnormal uptake. Larynx: No abnormal uptake. Lungs, pleura and trachea: No abnormal uptake. Heart: Normal physiologic uptake. Mediastinal space: No abnormal uptake. Diaphragm: Small hiatal hernia. Liver: No abnormal uptake. Punctate calcified granulomata. Gallbladder and biliary ducts: No abnormal uptake. Prior cholecystectomy. Pancreas: No abnormal uptake. Spleen: Continued decreased splenomegaly now measures 15.7 cm in maximal dimension and shows SUV max 2.9 (SUV mean 2.1), previously 18.6 cm in maximal dimension in March 2024 and 26 cm in maximal dimension in December 2023 with SUV max 6.0 (SUV mean 3.6). Adrenal glands: No abnormal uptake. Kidneys and ureters: Normal physiologic uptake. Stomach and bowel: No abnormal uptake. Intraperitoneal and retroperitoneal spaces: Trace free pelvic fluid, nonspecific. Vasculature: No abnormal uptake. Mild systemic atherosclerotic calcification without aortic aneurysm. Lymph nodes: No abnormal uptake. No lymphadenopathy in the head, neck, chest, abdomen, pelvis, and extremities. Skeleton: No abnormal uptake in the visualized axial and appendicular skeleton. Previously reported right scapular uptake not present on current exam. Soft tissues: Low-level FDG uptake at the right supraspinatus muscle and subscapularis tendon without underlying CT abnormality is likely strain. Loss of the right acromial humeral space is noted. Small fat containing umbilical hernia. METRICS: Mediastinal blood pool: SUV mean 2.1, SUV max 2.5 Liver uptake: SUV mean 2.9, SUV max 3.5 PET/PET skull to thigh SUBS [id number] IMPRESSION: 1. Continued decreased splenomegaly and FDG uptake, Deauville 3. 2. Evidence of right rotator cuff tendinopathy with loss of the acromial humeral space indicating supraspinatus tendon tear.
[2024-07-21 09:20] VITALS: BP 147/75; PULSE 63; RESP 16; TEMP 36.5; O2SAT 99
[2024-07-21 09:53] LABS: Basophils % 0.4 %; Eosinophils % 1.6 %; Hematocrit 36.7 % (36-47); Lymphocytes # 0.8 10^3/uL (0.8-4.8); Lymphocytes % 33.6 %; Mean Corpuscular HGB Conc 33.8 g/dL (30-55); Mean Corpuscular Hemoglobin 31.1 pg (27-33); Mean Platelet Volume 10.5 fL (7.4-10.4); Monocytes # 0.1 10^3/uL (0.2-0.9); Monocytes % 4.4 %; Nucleated Red Blood Cells % 0 %; Platelet Count 133 10^3/cmm (157-399); Red Blood Count 3.99 10^6/uL (3.85-5.65); Red Cell Distribution Width 14.1 % (12.1-15.1)
[2024-07-21 10:10] LABS: Alanine Aminotransferase 39 U/L (0-33); Albumin Level 4.1 g/dL (3.5-5.2); Alkaline Phosphatase 129 U/L (35-105); Anion Gap 12.9 (5-19); Aspartate Amino Transferase 24 U/L (0-32); Blood Urea Nitrogen 12 mg/dL (8-23); Calcium 9.3 mg/dL (8.5-10.5); Carbon Dioxide 27 mmol/L (22-29); Chloride 104 mmol/L (98-107); Globulin 1.7 g/dL (1.3-4.6); Glomerular Filtration Rate 63.2 mL/min (90-130); Glucose 119 mg/dL (65-115); Lactate Dehydrogenase 160 U/L (135-214); Osmolality Calculated 291 mOsm/kg (285-295); Potassium 3.9 mmol/L (3.5-5.1); Sodium 140 mmol/L (136-145); Total Bilirubin 0.5 mg/dL (0.15-1.2); Total Protein 5.8 g/dL (6.6-8.7); Uric Acid 4.6 mg/dL (2.4-5.7)
[2024-07-21] MEDS: acetaminophen 325 mg Tablet 650 MG PO (11:45)
[2024-07-21] MEDS: methylPREDNISolone sod succ 40 mg/mL INJ IVP (11:46)
[2024-07-21] MEDS: famotidine 20 mg/2 mL INJ IVP (11:52)
[2024-07-21] MEDS: diphenhydrAMINE 50 mg/mL SDV 1mL 25 MG IVP (11:57)
[2024-07-21 13:10] VITALS: BP 108/68; PULSE 61; RESP 16; TEMP 36.7; O2SAT 96
[2024-07-21 13:40] VITALS: BP 104/53; PULSE 68; RESP 16; TEMP 36.6; O2SAT 97
[2024-07-21 14:12] VITALS: BP 106/66; PULSE 67; RESP 16; TEMP 36.8; O2SAT 95
[2024-07-21 14:46] VITALS: BP 114/74; PULSE 66; RESP 16; TEMP 36.7; O2SAT 98
[2024-07-21 15:40] VITALS: BP 120/70; PULSE 69; RESP 16; TEMP 36.6; O2SAT 98
[2024-07-22 05:45] LABS: PROTEIN, TOTAL 5.9 g/dL (6.1-8.1)
[2024-07-22 19:20] LABS: ALBUMIN 3.9 g/dL (3.8-4.8); ALPHA 1 GLOBULIN 0.3 g/dL (0.2-0.3); ALPHA 2 GLOBULIN 0.6 g/dL (0.5-0.9); BETA 1 GLOBULIN 0.4 g/dL (0.4-0.6); BETA 2 GLOBULIN 0.2 g/dL (0.2-0.5); GAMMA GLOBULIN 0.5 g/dL (0.8-1.7)
== END 2024-07-26 23:59 | disposition home or self-care (01) ==
PROVIDERS: Absent Provider Family Medicine; PCP Family Medicine; Visit Provider Internal Medicine
DX: Z53.9 Procedure and treatment not carried out, unspecified reason; Z51.12 Encounter for antineoplastic immunotherapy; C83.07 Small cell B-cell lymphoma, spleen; Z79.52 Long term (current) use of systemic steroids; Z79.899 Other long term (current) drug therapy
CPT/HCPCS: 78815; 80053; 83615; 84155; 84165; 84550; 85025; 96375; 96413; 96415; A9552; J1200; J2919; J3490; J7040; Q5115

== ENCOUNTER 2024-10-04 08:30 | Oncology outpatient (recurring) (ONCR) | payer BC, SELFPAY ==
[2024-09-29 09:10] LABS: Basophils % 0.7 %; Eosinophils # 0.1 10^3/uL (0.0-0.8); Eosinophils % 1.8 %; Hematocrit 38.1 % (36-47); Lymphocytes # 0.8 10^3/uL (0.8-4.8); Lymphocytes % 29.2 %; Mean Corpuscular HGB Conc 33.3 g/dL (30-55); Mean Corpuscular Hemoglobin 30.3 pg (27-33); Mean Corpuscular Volume 90.9 fl (85-98); Mean Platelet Volume 10.9 fL (7.4-10.4); Monocytes # 0.2 10^3/uL (0.2-0.9); Monocytes % 7.3 %; Neutrophils # 1.66 10^3/uL (1.8-7.7); Neutrophils % 60.6 %; Nucleated Red Blood Cells % 0 %; Platelet Count 122 10^3/cmm (157-399); Red Blood Count 4.19 10^6/uL (3.85-5.65); Red Cell Distribution Width 13.4 % (12.1-15.1); White Blood Count 2.74 10^3/uL (3.29-11.43)
[2024-09-29 10:31] LABS: Alanine Aminotransferase 14 U/L (0-33); Albumin Level 3.5 g/dL (3.5-5.2); Alkaline Phosphatase 95 U/L (35-105); Blood Urea Nitrogen 11 mg/dL (8-23); Calcium 7.4 mg/dL (8.5-10.5); Carbon Dioxide 22 mmol/L (22-29); Chloride 112 mmol/L (98-107); Globulin 1.6 g/dL (1.3-4.6); Glomerular Filtration Rate 84.5 mL/min (90-130); Glucose 110 mg/dL (65-115); Osmolality Calculated 298 mOsm/kg (285-295); Sodium 144 mmol/L (136-145); Total Bilirubin 0.5 mg/dL (0.15-1.2); Total Protein 5.1 g/dL (6.6-8.7)
[2024-09-29 10:38] LABS: Anion Gap 13.3 (5-19); Aspartate Amino Transferase 15 U/L (0-32); Lactate Dehydrogenase 189 U/L (135-214); Potassium 3.3 mmol/L (3.5-5.1)
[2024-09-29] MEDS: sodium chloride 0.9% 500 ML 75 ML IV (11:20)
[2024-09-29] MEDS: diphenhydrAMINE 50 mg/mL SDV 1mL 25 MG IVP (11:23)
[2024-09-29] MEDS: methylPREDNISolone sod succ 40 mg/mL INJ IVP (11:24)
[2024-09-29] MEDS: famotidine 20 mg/2 mL INJ IVP (11:24)
[2024-09-29] MEDS: acetaminophen 325 mg Tablet 650 MG PO (11:24)
[2024-09-29 13:20] VITALS: BP 116/71; PULSE 78; RESP 16; TEMP 36.8; O2SAT 98
[2024-09-29] MEDS: SODIUM CHLORIDE 0.9% IV (13:20)
[2024-09-29] MEDS: RITUXIMAB PVVR IV (13:20)
[2024-09-29 14:00] VITALS: BP 117/70; PULSE 73; TEMP 36.7; O2SAT 96
[2024-09-29 14:30] VITALS: BP 106/67; PULSE 72; RESP 16; TEMP 37; O2SAT 95
[2024-09-29 15:00] VITALS: BP 115/69; PULSE 65; RESP 18; TEMP 36.7; O2SAT 95
[2024-09-29 16:15] VITALS: BP 131/65; PULSE 74; RESP 17; TEMP 36.4; O2SAT 97
[2024-10-01 10:40] LABS: ALBUMIN 4.2 g/dL (3.8-4.8); ALPHA 1 GLOBULIN 0.2 g/dL (0.2-0.3); ALPHA 2 GLOBULIN 0.5 g/dL (0.5-0.9); BETA 1 GLOBULIN 0.3 g/dL (0.4-0.6); BETA 2 GLOBULIN 0.2 g/dL (0.2-0.5); GAMMA GLOBULIN 0.5 g/dL (0.8-1.7)
[2024-10-04] MEDS: sodium chlor 0.9% + KCl 40 mEq 40 MEQ/1,000 ML BAG 250 MEQ IV (09:03)
[2024-10-04] MEDS: diphenhydrAMINE 50 mg/mL SDV 1mL 25 MG IVP (10:35)
[2024-10-04] MEDS: lidocaine 1% INJ 20 mL 5 ML IV (11:07)
[2024-10-04 14:27] VITALS: BP 113/70; PULSE 81; TEMP 36.2; O2SAT 94
== END 2024-10-24 23:59 | disposition home or self-care (01) ==
PROVIDERS: Internal Medicine; Nurse Practitioner; Absent Provider Family Medicine; PCP Family Medicine; Visit Provider Internal Medicine Medical Oncology
DX: Z53.9 Procedure and treatment not carried out, unspecified reason; E87.6 Hypokalemia; Z79.899 Other long term (current) drug therapy
CPT/HCPCS: 80053; 83615; 84155; 84165; 85025; 96365; 96366; 96375; J1200; J2919; J3490; J7040; J9999; Q5119

== ENCOUNTER 2024-12-14 14:40 | Oncology outpatient (recurring) (ONCR) | payer BC, SELFPAY ==
[2024-11-24 08:53] LABS: Basophils % 0.8 %; Eosinophils % 1.1 %; Lymphocytes % 28.5 %; Mean Corpuscular HGB Conc 34.1 g/dL (30-55); Mean Corpuscular Hemoglobin 31.4 pg (27-33); Mean Corpuscular Volume 91.9 fl (85-98); Mean Platelet Volume 10.7 fL (7.4-10.4); Monocytes # 0.2 10^3/uL (0.2-0.9); Neutrophils # 2.31 10^3/uL (1.8-7.7); Neutrophils % 63.3 %; Nucleated Red Blood Cells % 0 %; Platelet Count 144 10^3/cmm (157-399); Red Blood Count 4.46 10^6/uL (3.85-5.65); Red Cell Distribution Width 13.4 % (12.1-15.1); White Blood Count 3.65 10^3/uL (3.29-11.43)
[2024-11-24 09:06] LABS: Alanine Aminotransferase 24 U/L (0-33); Albumin Level 4.6 g/dL (3.5-5.2); Alkaline Phosphatase 130 U/L (35-105); Aspartate Amino Transferase 22 U/L (0-32); Blood Urea Nitrogen 12 mg/dL (8-23); Calcium 9.4 mg/dL (8.5-10.5); Carbon Dioxide 29 mmol/L (22-29); Chloride 102 mmol/L (98-107); Creatinine Clr Calc Pharmacy 72.6216; Globulin 2.3 g/dL (1.3-4.6); Glomerular Filtration Rate 63.2 mL/min (90-130); Glucose 127 mg/dL (65-115); Osmolality Calculated 295 mOsm/kg (285-295); Sodium 142 mmol/L (136-145); Total Protein 6.9 g/dL (6.6-8.7)
[2024-11-24 09:19] LABS: Anion Gap 14.5 (5-19); Potassium 3.5 mmol/L (3.5-5.1)
[2024-11-24] MEDS: acetaminophen 325 mg Tablet 650 MG PO (11:17)
[2024-11-24] MEDS: sodium chloride 0.9% 500 ML 75 ML IV (11:19)
[2024-11-24] MEDS: famotidine 20 mg/2 mL INJ IVP (11:20)
[2024-11-24] MEDS: diphenhydrAMINE 50 mg/mL SDV 1mL 25 MG IVP (11:23)
[2024-11-24] MEDS: methylPREDNISolone sod succ 40 mg/mL INJ IVP ×2 (11:32)
[2024-11-24 12:02] VITALS: BP 124/73; PULSE 68; RESP 16; TEMP 36.6; O2SAT 98
[2024-11-24] MEDS: SODIUM CHLORIDE 0.9% IV (12:05)
[2024-11-24] MEDS: RITUXIMAB PVVR IV (12:05)
[2024-11-24 12:40] VITALS: BP 115/69; PULSE 68; RESP 17; TEMP 36.4; O2SAT 98
[2024-11-24 13:10] VITALS: BP 133/74; PULSE 71; RESP 17; TEMP 36.6; O2SAT 99
[2024-11-24 13:35] VITALS: BP 134/77; PULSE 75; RESP 16; TEMP 36.4; O2SAT 93
[2024-11-24 15:30] VITALS: BP 125/74; PULSE 77; RESP 17; TEMP 36.8; O2SAT 98
--- NOTE | 2024-12-14 14:39 | MM_ITS ---
WS: [id number] BILATERAL 3D TOMOSYNTHESIS DIGITAL SCREENING MAMMOGRAPHY WITH CAD CLINICAL INFORMATION: SCREENING HISTORY: Screening mammogram. No current complaints. COMPARISON: 2023 TECHNIQUE: Bilateral CC and MLO views. FINDINGS: Scattered fibroglandular densities bilaterally. No suspicious focal mass, asymmetry, calcifications, or architectural distortion. No evidence of malignancy. MM/MM scr BI tomosynthesis [id number] IMPRESSION: DENSITY: There are scattered areas of fibroglandular density. BI-RADS: 1 - Negative. FOLLOW UP: 1 Year Follow-up Recommend return to annual screening mammography.
== END 2024-12-24 23:59 | disposition home or self-care (01) ==
LOC: RAD 12-15 00:01 → ONCMED 12-15 09:04
PROVIDERS: Internal Medicine; Absent Provider Family Medicine; PCP Family Medicine; Visit Provider Internal Medicine Medical Oncology
DX: Z53.9 Procedure and treatment not carried out, unspecified reason; Z12.31 Encounter for screening mammogram for malignant neoplasm of breast; R92.323 Mammographic fibroglandular density, bilateral breasts
CPT/HCPCS: 77063; 77067; 80053; 85025; 96375; 96413; 96415; J1200; J2919; J3490; J7040; J9999; Q5119

== ENCOUNTER 2025-01-19 07:58 | Oncology outpatient (recurring) (ONCR) | payer BC, SELFPAY ==
[2025-01-19 08:47] LABS: Reticulocyte % 1.8 % (0.5-2.0)
[2025-01-19 08:50] LABS: Basophils % 0.5 %; Eosinophils % 0.8 %; Hematocrit 39.3 % (36-47); Lymphocytes # 0.8 10^3/uL (0.8-4.8); Lymphocytes % 22.3 %; Mean Corpuscular HGB Conc 34.4 g/dL (30-55); Mean Corpuscular Hemoglobin 31.8 pg (27-33); Mean Corpuscular Volume 92.7 fl (85-98); Monocytes # 0.3 10^3/uL (0.2-0.9); Monocytes % 7.8 %; Neutrophils # 2.54 10^3/uL (1.8-7.7); Neutrophils % 68.3 %; Nucleated Red Blood Cells % 0 %; Platelet Count 134 10^3/cmm (157-399); Red Blood Count 4.24 10^6/uL (3.85-5.65); Red Cell Distribution Width 13.3 % (12.1-15.1); White Blood Count 3.72 10^3/uL (3.29-11.43)
[2025-01-19 08:52] LABS: Erythrocyte Sedimentation Rate 1 mm/hr (0-15)
[2025-01-19 09:02] LABS: Alanine Aminotransferase 18 U/L (0-33); Albumin Level 4.4 g/dL (3.5-5.2); Alkaline Phosphatase 125 U/L (35-105); Anion Gap 16.4 (5-19); Aspartate Amino Transferase 14 U/L (0-32); Blood Urea Nitrogen 12 mg/dL (8-23); Calcium 9.6 mg/dL (8.5-10.5); Carbon Dioxide 27 mmol/L (22-29); Chloride 99 mmol/L (98-107); Globulin 2.2 g/dL (1.3-4.6); Glucose 112 mg/dL (65-115); Immunoglobulin IGG 518 mg/dL (700-1600); Immunoglobulin IGM 62 mg/dL (40-230); Lactate Dehydrogenase 186 U/L (135-214); Osmolality Calculated 289 mOsm/kg (285-295); Phosphorus 3.8 mg/dL (2.5-4.5); Potassium 3.4 mmol/L (3.5-5.1); Sodium 139 mmol/L (136-145); Total Bilirubin 0.8 mg/dL (0.15-1.2); Total Protein 6.6 g/dL (6.6-8.7); Uric Acid 7.8 mg/dL (2.4-5.7)
[2025-01-19 09:05] LABS: Immunoglobulin IGA < 50 mg/dL (70-400)
[2025-01-19] MEDS: acetaminophen 325 mg Tablet 650 MG PO (10:34)
[2025-01-19] MEDS: diphenhydrAMINE 50 mg/mL SDV 1mL 25 MG IVP (10:34)
[2025-01-19] MEDS: sodium chloride 0.9% 500 ML 75 ML IV (10:34)
[2025-01-19] MEDS: famotidine 20 mg/2 mL INJ IVP (10:37)
[2025-01-19] MEDS: methylPREDNISolone sod succ 40 mg/mL INJ IVP (10:42)
[2025-01-19] MEDS: RITUXIMAB PVVR IV (11:22)
[2025-01-19] MEDS: SODIUM CHLORIDE 0.9% IV (11:22)
[2025-01-19 11:25] VITALS: BP 114/72; PULSE 60; RESP 16; TEMP 35.6; O2SAT 99
[2025-01-19 11:59] VITALS: BP 110/68; PULSE 74; RESP 18; TEMP 35.6; O2SAT 97
[2025-01-19 12:15] VITALS: BP 133/72; PULSE 80; RESP 16; TEMP 36.2; O2SAT 96
[2025-01-19 12:30] VITALS: BP 107/66; PULSE 80; RESP 16; TEMP 36.4; O2SAT 97
[2025-01-19 14:30] VITALS: BP 109/72; PULSE 81; TEMP 36.1; O2SAT 98
[2025-01-20 06:15] LABS: Beta-2-Microglobulin 2.88 mg/L (< OR = 2.51)
[2025-01-20 06:34] LABS: PROTEIN, TOTAL 6.2 g/dL (6.1-8.1)
[2025-01-21 10:37] LABS: ALBUMIN 4.4 g/dL (3.8-4.8); ALPHA 1 GLOBULIN 0.2 g/dL (0.2-0.3); ALPHA 2 GLOBULIN 0.5 g/dL (0.5-0.9); BETA 1 GLOBULIN 0.4 g/dL (0.4-0.6); BETA 2 GLOBULIN 0.2 g/dL (0.2-0.5); GAMMA GLOBULIN 0.5 g/dL (0.8-1.7)
[2025-01-23 19:05] LABS: Immunofixation Serum Normal pattern.
== END 2025-01-23 23:59 | disposition home or self-care (01) ==
PROVIDERS: Nurse Practitioner Family; Absent Provider Family Medicine; PCP Family Medicine; Visit Provider Internal Medicine Medical Oncology
DX: Z53.9 Procedure and treatment not carried out, unspecified reason (principal)
CPT/HCPCS: 36415; 80053; 82232; 82784; 83615; 84100; 84155; 84165; 84550; 85025; 85045; 85651; 86140; 86334; 96375; 96413; 96415; J1200; J2919; J3490; J7040; J9999; Q5119

== ENCOUNTER 2025-03-16 08:08 | Oncology outpatient (recurring) (ONCR) | payer BC, SELFPAY ==
--- NOTE | 2025-03-10 08:30 | PETR_ITS ---
PROCEDURE INFORMATION: Exam: PET/CT Skull Base to Mid-thigh Exam date and time: 03/10/2025 9:35 AM Age: 65 years old Clinical indication: Condition or disease; Primary cancer: Marginal zone lymphoma; Prior surgery; Surgery date: 6+ months; Surgery type: Tubal, gb LABS AND CLINICAL REPORTS: Glucose: 121 mg/dl Treatment strategy for malignancy (PET staging): Restaging (PS) TECHNIQUE: Imaging protocol: Following at least four-hour fasting and following the injection of radiopharmaceutical, low dose CT images were obtained. Then, PET images were obtained. Attenuation corrected images were constructed using the CT scan. Fused images of PET and CT were reviewed. The standardized uptake values (SUV) reported below are maximum values within a region of interest, expressed in gm/ml. Exam includes orbital meatal line to mid-thigh. SUV normalization method: BodyWeight Radiopharmaceutical: 10.82 mCi F-18 FDG (Fluorodeoxyglucose), IV. Time of imaging post radiopharmaceutical administration: 45 minutes Injection site: left ac COMPARISON: PT PET skull to thigh SUBS [id number] 07/08/2024 10:12 AM FINDINGS: Brain: Visualized brain has normal physiologic uptake. Paranasal sinuses: Moderately FDG avid left sphenoid sinus opacification. Pharynx: No abnormal uptake. Larynx: No abnormal uptake. Lungs, pleura and trachea: No abnormal uptake. Heart: Normal physiologic uptake. Mediastinal space: No abnormal uptake. Diaphragm: Small hiatal hernia. Liver: No abnormal uptake. Punctate calcified granulomata. Gallbladder and biliary ducts: No abnormal uptake. Prior cholecystectomy. Pancreas: No abnormal uptake. Spleen: Intervally stable splenomegaly with SUV mean 2.4 and SUV max 3.2, previously SUV mean 2.1 and SUV max 2.9. Adrenal glands: No abnormal uptake. Kidneys and ureters: Normal physiologic uptake. Stomach and bowel: No abnormal uptake. Urinary bladder: Small amount of air within the nondependent urinary bladder. Vasculature: No abnormal uptake. Mild systemic atherosclerotic calcification without aortic aneurysm. Lymph nodes: No abnormal uptake. No lymphadenopathy in the head, neck, chest, abdomen, pelvis, and extremities. Calcified mediastinal and left hilar nodes in keeping with sequela of old granulomatous disease. Skeleton: Degenerative change along the spine and right shoulder. Low-level right shoulder periarticular uptake is likely inflammatory. Low-level uptake adjacent to both humeral heads is likely inflammatory rotator cuff tendinopathy. Low-level uptake at right hamstring tendon origin is likely inflammatory tendinopathy. Soft tissues: No abnormal uptake in the visualized head, neck, chest, abdomen, pelvis, and extremities. Small fat containing umbilical hernia. METRICS: Mediastinal blood pool: SUV mean 2.8, previously 2.1 Liver uptake: SUV mean 3.3, previously 2.9 PET/PET skull to thigh SUBS [id number] IMPRESSION: 1. Stable splenomegaly and FDG uptake, Deauville 3 complete metabolic response. 2. Inflammatory left sphenoid sinus disease. 3. Small amount of air within the nondependent urinary bladder, query recent instrumentation. Otherwise consideration for cystitis.
[2025-03-16 08:30] LABS: Hematocrit 39.2 % (36-47); Hemoglobin 13.10 g/dL (11.27-16.99); Mean Corpuscular HGB Conc 33.4 g/dL (30-55); Mean Corpuscular Hemoglobin 30.9 pg (27-33); Mean Corpuscular Volume 92.5 fl (85-98); Nucleated Red Blood Cells % 0 %; Platelet Count 131 10^3/cmm (157-399); Red Blood Count 4.24 10^6/uL (3.85-5.65); White Blood Count 2.77 10^3/uL (3.29-11.43)
[2025-03-16 08:46] LABS: Alanine Aminotransferase 24 U/L (0-33); Albumin Level 4.5 g/dL (3.5-5.2); Alkaline Phosphatase 125 U/L (35-105); Anion Gap 13.4 (5-19); Aspartate Amino Transferase 17 U/L (0-32); Blood Urea Nitrogen 10 mg/dL (8-23); Calcium 9.2 mg/dL (8.5-10.5); Carbon Dioxide 27 mmol/L (22-29); Chloride 106 mmol/L (98-107); Creatinine Clr Calc Pharmacy 82.0626; Globulin 1.8 g/dL (1.3-4.6); Glucose 130 mg/dL (65-115); Osmolality Calculated 297 mOsm/kg (285-295); Potassium 3.4 mmol/L (3.5-5.1); Sodium 143 mmol/L (136-145); Total Protein 6.3 g/dL (6.6-8.7)
== END 2025-03-26 23:59 | disposition home or self-care (01) ==
PROVIDERS: Nurse Practitioner; PCP Family Medicine; Visit Provider Internal Medicine Medical Oncology
DX: C83.07 Small cell B-cell lymphoma, spleen; Z53.9 Procedure and treatment not carried out, unspecified reason
CPT/HCPCS: 36415; 78815; 80053; 85025; A9552

== ENCOUNTER 2025-06-29 12:14 | Oncology outpatient (recurring) (ONCR) | payer BC, SELFPAY ==
[2025-06-29 13:06] LABS: Hematocrit 40.3 % (36-47); Hemoglobin 13.70 g/dL (11.27-16.99); Mean Corpuscular HGB Conc 34.0 g/dL (30-55); Mean Corpuscular Hemoglobin 31.6 pg (27-33); Mean Corpuscular Volume 92.9 fl (85-98); Nucleated Red Blood Cells % 0 %; Platelet Count 143 10^3/cmm (157-399); Red Blood Count 4.34 10^6/uL (3.85-5.65); White Blood Count 4.12 10^3/uL (3.29-11.43)
[2025-06-29 13:28] LABS: Alanine Aminotransferase 19 U/L (0-33); Albumin Level 4.7 g/dL (3.5-5.2); Alkaline Phosphatase 106 U/L (35-105); Anion Gap 13.3 (5-19); Aspartate Amino Transferase 17 U/L (0-32); Blood Urea Nitrogen 12 mg/dL (8-23); Calcium 9.5 mg/dL (8.5-10.5); Carbon Dioxide 27 mmol/L (22-29); Chloride 104 mmol/L (98-107); Globulin 1.9 g/dL (1.3-4.6); Glucose 124 mg/dL (65-115); Osmolality Calculated 293 mOsm/kg (285-295); Potassium 3.3 mmol/L (3.5-5.1); Sodium 141 mmol/L (136-145); Total Protein 6.6 g/dL (6.6-8.7); Uric Acid 5.8 mg/dL (2.4-5.7)
[2025-06-29 14:34] LABS: Magnesium 2.1 mg/dL (1.7-2.3)
[2025-06-30 08:09] LABS: PROTEIN, TOTAL 6.2 g/dL (6.1-8.1)
[2025-06-30 19:48] LABS: ALPHA 1 GLOBULIN 0.2 g/dL (0.2-0.3); ALPHA 2 GLOBULIN 0.5 g/dL (0.5-0.9); BETA 1 GLOBULIN 0.4 g/dL (0.4-0.6); BETA 2 GLOBULIN 0.2 g/dL (0.2-0.5)
== END 2025-07-26 23:59 | disposition home or self-care (01) ==
PROVIDERS: Internal Medicine; PCP Family Medicine; Visit Provider Nurse Practitioner
DX: C83.07 Small cell B-cell lymphoma, spleen (principal)
CPT/HCPCS: 36415; 80053; 82232; 82784; 83615; 83735; 84155; 84165; 84550; 85025; 86334